=== PATIENT | female | born 1990 | race African-American/Black ===

== ENCOUNTER 2021-06-01 05:50 | Emergency (ER) | payer OTHER | END 2021-06-02 06:16 | disposition home or self-care (01) | LOC: CSHERS 05:50 | DX: O36.8130 Decreased fetal movements, third trimester, not applicable or unspecified (principal); Z3A.16 16 weeks gestation of pregnancy ==

== ENCOUNTER 2021-11-01 08:39 | Day surgery (SDC) | payer BC ==
[2021-11-01 09:34] VITALS: BMI 34.9
[2021-11-01] MEDS ORDERED: hydrALAZINE 20 MG/ML VIAL SLOW IVP PRN (11:26)
== END 2021-11-01 10:25 | disposition home health service (06) ==
LOC: CSHLD/OP 08:39
PROVIDERS: ATTEND Obstetrics & Gynecology
DX: O47.1 False labor at or after 37 completed weeks of gestation (principal); O09.213 Supervision of pregnancy with history of pre-term labor, third trimester; O99.820 Streptococcus B carrier state complicating pregnancy; Z3A.38 38 weeks gestation of pregnancy

== ENCOUNTER 2021-11-01 18:46 | Inpatient (IN) | payer BC, OTHER ==
[2021-11-01] MEDS ORDERED: Promethazine HCl 25 MG/ML VIAL IM PRN ×2 (19:14→20:11)
[2021-11-01] MEDS ORDERED: Ibuprofen 800 MG TAB PO PRN (19:14)
[2021-11-01] MEDS ORDERED: Ondansetron PF 4 MG/2 ML Vial IVP PRN ×2 (19:14→20:11)
[2021-11-01] MEDS ORDERED: HYDROcodone/Acetaminophen 5/325 mg Tablet PO PRN ×2 (19:14)
[2021-11-01] MEDS ORDERED: Acetaminophen 500 MG TAB PO PRN (19:14)
[2021-11-01] MEDS ORDERED: hydrALAZINE 20 MG/ML VIAL SLOW IVP PRN ×3 (19:14→23:04)
[2021-11-01] MEDS ORDERED: Butorphanol Tartrate 1 MG/ML VIAL SLOW IVP PRN (19:14)
[2021-11-01] MEDS ORDERED: Lidocaine 1% (PF) 30 ML VIAL SC PRN (19:14)
[2021-11-01] MEDS ORDERED: NS w/ Oxytocin 30 units 500 ML IV SCH (19:15)
[2021-11-01] MEDS ORDERED: Lactated Ringer's 1,000 ML IV SCH ×2 (19:15)
[2021-11-01] MEDS ORDERED: Penicillin G Potassium 5 MILL.UNITS VIAL ONE (19:25)
[2021-11-01 19:29] LABS: Hemoglobin 12.9 g/dL (12.0-15.5); Mean Corpuscular HGB CONC 34.2 g/dL (32.0-36.0); Mean Corpuscular Hemoglobin 28.5 pg (27.0-33.0); Mean Corpuscular Volume 83.4 fl (81.6-98.3); Platelet Count 271 10x3/uL (150-450); RBC Distribution Width 14.5 % (11.5-14.5); Red Blood Cell (RBC) Count 4.52 10x6/uL (3.90-5.03); White Blood Cell (WBC) Count 9.9 10x3/uL (3.5-10.5)
[2021-11-01] MEDS ORDERED: Fentanyl 2 mcg/Bup 0.1% Cadd 100 ML ONE (19:32)
[2021-11-01] MEDS ORDERED: Lidocaine 1% (PF) 30 ML VIAL ONE (19:37)
[2021-11-01] MEDS ORDERED: NS w/ Oxytocin 30 units 500 ML ONE (19:37)
[2021-11-01 19:59] LABS: Syphilis Antibody Nonreactive (Nonreactive); Syphilis Antibody Index 0.09 S/CO (<1.00 Non-Reactive)
[2021-11-01 20:00] LABS: Hep B Surf Ag Non-Reactive S/CO (NonReactive)
[2021-11-01] MEDS ORDERED: Penicillin G Potassium 5 MILL.UNITS in Sodium Chloride 0.9% 100 ML IVPB SCH (20:00)
[2021-11-01 20:09] LABS: HBSAg Index 0.17 S/CO (0-0.99)
[2021-11-01] MEDS ORDERED: Hydrocerin (Eucerin) Cream 120 gm Jar TOP PRN (20:11)
[2021-11-01] MEDS ORDERED: ePHEDrine Sulfate 50 MG/10 ML VIAL SLOW IVP PRN (20:11)
[2021-11-01] MEDS ORDERED: Acetaminophen 325 MG TAB PO PRN (20:11)
[2021-11-01] MEDS ORDERED: diphenhydrAMINE 50 MG/ML VIAL IVP PRN (20:11)
[2021-11-01] MEDS ORDERED: Naloxone HCl 0.4 mg/ml Vial IVP PRN ×2 (20:11)
[2021-11-01] MEDS ORDERED: Communication Order-Pharmacy FS SCH (20:15)
[2021-11-01] MEDS ORDERED: Fentanyl 2 mcg/Bupivacaine 0.1% Cassette 100 ML EPIDURAL SCH (20:15)
[2021-11-01] MEDS ORDERED: Lactated Ringer's 500 ML IV PRN (20:27)
[2021-11-01] MEDS ORDERED: Fentanyl 100 MCG/2 ML VIAL ONE (20:30)
[2021-11-01 20:39] VITALS: BMI 34.9
[2021-11-01 21:07] LABS: SARS-CoV-2 NAA Rapid Test Not Detected (NotDetected)
[2021-11-01] MEDS ORDERED: Calcium Gluc 4.6 MEQ/10 ML (100 MG/ML) SLOW IVP PRN (23:04)
[2021-11-01] MEDS ORDERED: Labetalol HCl 100 MG/20 ML VIAL SLOW IVP PRN ×2 (23:04)
[2021-11-01] MEDS ORDERED: Lorazepam 2 MG/ML VIAL SLOW IVP PRN (23:04)
[2021-11-01 23:46] LABS: ALT (SGPT) 14 U/L (8-55); AST (SGOT) 21 U/L (5-34); Albumin 3.3 g/dL (3.5-5.0); Alkaline Phosphatase 150 U/L (40-110); Anion Gap 12 mmol/L (10-20); BUN (Urea Nitrogen) 7 mg/dL (7.0-18.7); Bilirubin, Total 0.5 mg/dL (0.2-1.2); Calc. Creatinine Clearance 194 mL/min (70-130); Calcium 8.8 mg/dL (7.8-10.44); Carbon Dioxide 22 mmol/L (22-29); Chloride 104 mmol/L (98-107); Globulin 3.5 g/dL (2.4-3.5); Glucose 146 mg/dL (70-105); Potassium 4.2 mmol/L (3.5-5.1); Protein, Total 6.8 g/dL (6.0-8.3); Sodium 134 mmol/L (136-145); Uric Acid 3.9 mg/dL (2.6-6.0)
[2021-11-02] MEDS ORDERED: Penicillin G 2.5 MILL.units 2.5 MILL.UNITS in Premix Bag 1 BAG IVPB SCH
[2021-11-02] MEDS ORDERED: diphenhydrAMINE 25 MG CAP PO PRN (00:49)
[2021-11-02] MEDS ORDERED: Zolpidem Tartrate 5 MG TAB PO PRN (00:49)
[2021-11-02] MEDS ORDERED: Acetaminophen/Codeine 30-300mg Tablet PO PRN (00:49)
[2021-11-02] MEDS ORDERED: Preparation H Ointment 28 GM TUBE PR PRN (00:49)
[2021-11-02] MEDS ORDERED: Benzocaine-Menthol 82.5 ML CAN TOP PRN (00:49)
[2021-11-02] MEDS ORDERED: HYDROcodone/Acetaminophen 5/325 mg Tablet PO PRN (00:49)
[2021-11-02] MEDS ORDERED: hydrALAZINE 20 MG/ML VIAL SLOW IVP PRN (00:49)
[2021-11-02] MEDS ORDERED: Ondansetron PF 4 MG/2 ML Vial IVP PRN (00:49)
[2021-11-02] MEDS ORDERED: Promethazine HCl 25 MG/ML VIAL IM PRN (00:49)
[2021-11-02] MEDS ORDERED: Varicella virus, LIVE 0.5 ML VIAL SC ONE (00:49)
[2021-11-02] MEDS ORDERED: Misoprostol 200 MCG TAB VAG PRN (00:49)
[2021-11-02] MEDS ORDERED: Bisacodyl 10 MG SUPP PR PRN (00:49)
[2021-11-02] MEDS ORDERED: Lanolin Ointment 7 GM TUBE TOP PRN (00:49)
[2021-11-02] MEDS ORDERED: Boostrix 0.5 ML (Tdap) VIAL IM ONE (00:49)
[2021-11-02] MEDS ORDERED: Milk Of Magnesia 30 ML UDCUP PO PRN (00:49)
[2021-11-02] MEDS ORDERED: NS w/ Oxytocin 30 units 500 ML IV SCH (00:49)
[2021-11-02] MEDS ORDERED: Measles/Mumps/Rubella 10 MCG/0.5 ML VIAL SC ONE (00:49)
[2021-11-02] MEDS: Acetaminophen/Codeine 30-300mg Tablet PO PRN ×3 (02:49→22:03)
[2021-11-02 06:05] LABS: Hemoglobin 11.2 g/dL (12.0-15.5); Mean Corpuscular HGB CONC 33.4 g/dL (32.0-36.0); Mean Corpuscular Hemoglobin 28.9 pg (27.0-33.0); Mean Corpuscular Volume 86.6 fl (81.6-98.3); Mean Platelet Volume 11.2 fl (7.4-10.4); Platelet Count 204 10x3/uL (150-450); RBC Distribution Width 14.4 % (11.5-14.5); Red Blood Cell (RBC) Count 3.87 10x6/uL (3.90-5.03); White Blood Cell (WBC) Count 16.3 10x3/uL (3.5-10.5)
[2021-11-02] MEDS: Ferrous Sulfate 325 MG TAB PO SCH ×2 (07:38→15:52)
[2021-11-02] MEDS: Docusate 100 MG CAP PO SCH ×2 (08:03→22:02)
[2021-11-02] MEDS: Ibuprofen 800 MG TAB PO SCH ×3 (08:03→22:02)
[2021-11-02] MEDS: Prenatal Vitamin 1 TAB PO SCH (08:03)
[2021-11-02 09:00] LABS: Creatinine, Urine 173.69 mg/dL (47-110)
[2021-11-03] MEDS: Ibuprofen 800 MG TAB PO SCH (05:53)
[2021-11-03] MEDS: Prenatal Vitamin 1 TAB PO SCH (08:35)
[2021-11-03] MEDS: Docusate 100 MG CAP PO SCH (08:35)
[2021-11-03] MEDS: Ferrous Sulfate 325 MG TAB PO SCH (10:34)
[2021-11-03 11:06] VITALS: BP 128/74; TEMP 98.8
[2021-12-01] MEDS ORDERED: Bupivacaine/Epinephrine 0.25% 30 ML VIAL ONE (06:00)
== END 2021-11-03 13:15 | disposition home or self-care (01) | DRG 807 ==
LOC: CSHLD/OP 18:46 → CSHLD 19:19 → CSHPP 11-02 01:20
PROVIDERS: ADMIT Obstetrics & Gynecology; ATTEND Obstetrics & Gynecology
PROC: 10E0XZZ Delivery of Products of Conception, External Approach (ICD-10-PCS; principal; 2021-11-01)
PROC: 10D17Z9 Manual Extraction of Products of Conception, Retained, Via Natural or Artificial Opening (ICD-10-PCS; 2021-11-01)
PROC: 0HQ9XZZ Repair Perineum Skin, External Approach (ICD-10-PCS; 2021-11-01)
DX: O70.0 First degree perineal laceration during delivery (principal); Z37.0 Single live birth; Z3A.38 38 weeks gestation of pregnancy; Z20.822 Contact with and (suspected) exposure to COVID-19
CPT/HCPCS: 36415; 80053; 82570; 84156; 84550; 85027; 86780; 86850; 86900; 86901; 87340; J2540; J2590; J3490; J7120; U0002

== ENCOUNTER 2022-10-21 09:14 | Emergency (ER) | payer BC, OTHER | END 2022-10-21 10:54 | disposition home or self-care (01) | LOC: CSHERS 09:14 | DX: R07.89 Other chest pain (principal); E11.9 Type 2 diabetes mellitus without complications | CPT/HCPCS: 71045 ==